=== PATIENT | female | born 1980 | race Caucasian/White ===

== ENCOUNTER 2023-01-27 17:29 | Emergency (ER) | payer BC ==
[~2023-01-27] VITALS: Ht 167.6 cm; Wt 90.0 kg
[2023-01-27 17:30] VITALS: BP 135/83; TEMP 98; O2SAT 98
[2023-01-27] MEDS ORDERED: FERR325T82 PO (17:35)
[2023-01-27] MEDS ORDERED: BOOSTRIX VACCINE (TETANUS/DIPHTH/ACEL. PERTUSSIS) 0.5ML SYR IM ONE (18:05)
[2023-01-27] MEDS ORDERED: LIDOCAINE 2% MDV 20ML VIAL SC ONE (18:05)
[2023-01-27] MEDS ORDERED: CEPHALEXIN 500 MG CAP PO ONE (18:05)
[2023-01-27] MEDS ORDERED: CEPH500C PO (18:44)
== END 2023-01-27 19:12 | disposition home or self-care (01) ==
LOC: M ED 17:29
DX: S61.012A Laceration without foreign body of left thumb without damage to nail, initial encounter (principal); W26.0XXA Contact with knife, initial encounter; Y92.009 Unspecified place in unspecified non-institutional (private) residence as the place of occurrence of the external cause; Y93.G3 Activity, cooking and baking; Y99.9 Unspecified external cause status